=== PATIENT | female | born 1985 | race Caucasian/White ===

== ENCOUNTER 2018-08-04 19:14 | Emergency (ER) | payer SELFPAY ==
[~2018-08-04] VITALS: Ht 162.6 cm; Wt 46.0 kg
[2018-08-04 21:49] VITALS: BP 99/49
== END 2018-08-04 21:56 | disposition home or self-care (01) ==
LOC: ER 19:14
DX: R55 Syncope and collapse (principal); Z97.5 Presence of (intrauterine) contraceptive device
CPT/HCPCS: 81025; 93005; 99283; Z7610